=== PATIENT | female | born 1950 | race Caucasian/White ===

== ENCOUNTER 2017-06-29 11:50 | Emergency (ER) | payer MEDICARE, OTHER ==
--- NOTE | 2017-06-29 12:06 | EDM.PDOC ---
ED HPI GENERAL MEDICAL PROBLEM - General Stated Complaint: SORE FOOT Time Seen by Provider: 06/29/17 12:00 Source of Information: Reports: Patient History Limitations: Reports: No Limitations - History of Present Illness INITIAL COMMENTS - FREE TEXT/NARRATIVE: According to patient she was doing some yard work last night and felt a pop in her right ankle and was hurting for a while. She was able to walk with a limp. she woke up today and the pain is worse and also noted some swelling over the lateral aspect of the ankle and hence her to have it checked. She is not sure if she twisted her foot. She claims she has arthritis in the same foot and hence concerned. No other complaints. Onset Date: 06/28/17 Location: Reports: Lower Extremity, Right Quality: Reports: Ache Severity: Moderate Improves with: Reports: None Worsens with: Reports: None Associated Symptoms: Denies: Confusion, Chest Pain, Fever/Chills, Headaches, Malaise, Nausea/Vomiting, Rash, Seizure, Shortness of Breath, Syncope, Weakness - Related Data Allergies Allergy/AdvReac Type Severity Reaction Status Date / Time aspirin Allergy Shortness Verified 06/29/17 11:58 of Breath Home Meds: Home Meds Apixaban [Eliquis] 5 mg PO BID 06/29/17 [History] Furosemide [Lasix] 20 mg PO DAILY 06/29/17 [History] Metoprolol Tartrate 50 mg PO BID 06/29/17 [History] Pravastatin Sodium [Pravastatin (Pravachol)] 40 mg PO DAILY 06/29/17 [History] ED ROS GENERAL - Review of Systems Review Of Systems: See Below Constitutional: Denies: Fever, Chills HEENT: Denies: Rhinitis, Sinus Problem, Throat Pain Respiratory: Denies: Cough, Sputum Cardiovascular: Denies: Chest Pain, Lightheadedness GI/Abdominal: Denies: Nausea, Vomiting : Denies: Dysuria, Flank Pain Musculoskeletal: Reports: Joint Pain, Joint Swelling. Denies: Muscle Pain, Muscle Stiffness Skin: Denies: Bruising, Pruritis, Rash, Erythema, Wound Neurological: Denies: Dizziness, Headache, Numbness, Syncope, Tingling, Weakness ED EXAM, GENERAL - Physical Exam Exam: See Below Exam Limited By: No Limitations General Appearance: Alert, WD/WN, Mild Distress Eye Exam: Bilateral Eye: EOMI, PERRL Ears: Normal External Exam, Normal Canal, Hearing Grossly Normal, Normal TMs Ear Exam: Bilateral Ear: Auricle Normal, Canal Normal, TM normal Nose: Normal Inspection, Normal Mucosa, No Blood Throat/Mouth: Normal Inspection, Normal Lips, Normal Teeth, Normal Gums, Normal Oropharynx, Normal Voice, No Airway Compromise Head: Atraumatic, Normocephalic Neck: Normal Inspection, Supple, Non-Tender, Full Range of Motion Respiratory/Chest: No Respiratory Distress, Lungs Clear, Normal Breath Sounds, No Accessory Muscle Use, Chest Non-Tender Cardiovascular: Normal Peripheral Pulses, Regular Rate, Rhythm, No Edema, No Gallop, No JVD, No Murmur, No Rub Extremities: Normal Inspection, Normal Range of Motion, No Pedal Edema, Normal Capillary Refill, Other (Right foot and ankle: there is very minimal swelling over the lateral aspect of the ankle. She does have good Rom motion , mild pain with inversion of fore foot. On palpation tender just distal to the lateral malleolus. Able to weight bear and walk.). No: Pedal Edema Course - Vital Signs Text/Narrative:: X-ray right ankle appears normal. No obvious dislocation or fracture seen. Pt reassured that she has sprained her ankle. Giuliano wrap applied around the ankle. Okay to weight bear, Avoid twisting or turning motions around the ankle. Tylenol 650mg 3 times daily. Warm compresses 3-4 times daily for 10-15 minutes at a time. Pain should gradually improve. Last Recorded V/S: Last Vital Signs Temp 97.7 F 06/29/17 12:07 Pulse 40 L 06/29/17 12:07 Resp 16 06/29/17 12:07 BP 131/83 06/29/17 12:07 Pulse Ox 100 06/29/17 12:07 - Orders/Labs/Meds Orders: Active Orders 24 hr Category Date Time Status Ankle Min 3V Rt [CR] Stat Exams 06/29/17 11:59 Ordered Departure - Departure Time of Disposition: 12:25 Disposition: Home, Self-Care 01 Condition: Good Clinical Impression: Right ankle sprain - Discharge Information Additional Instructions: X-ray right ankle appears normal. No obvious dislocation or fracture seen. Pt reassured that she has sprained her ankle. Giuliano wrap applied around the ankle. Okay to weight bear, Avoid twisting or turning motions around the ankle. Tylenol 650mg 3 times daily. Warm compresses 3-4 times daily for 10-15 minutes at a time. Pain should gradually improve. - Problem List & Annotations (1) Right ankle sprain SNOMED Code(s): 91913846 Code(s): S93.401A - SPRAIN OF UNSPECIFIED LIGAMENT OF RIGHT ANKLE, INIT ENCNTR Status: Acute - Problem List Review Problem List Initiated/Reviewed/Updated: Yes - My Orders Last 24 Hours: My Active Orders 06/29/17 11:59 Ankle Min 3V Rt [CR] Stat - Assessment/Plan Last 24 Hours: My Active Orders 06/29/17 11:59 Ankle Min 3V Rt [CR] Stat Assessment:: Right ankle sprain Plan: X-ray right ankle appears normal. No obvious dislocation or fracture seen. Pt reassured that she has sprained her ankle. Giuliano wrap applied around the ankle. Okay to weight bear, Avoid twisting or turning motions around the ankle. Tylenol 650mg 3 times daily. Warm compresses 3-4 times daily for 10-15 minutes at a time. Pain should gradually improve.
--- NOTE | 2017-06-30 22:56 | CR ---
DATE OF SERVICE: 06/29/2017 CLINICAL DATA: Right ankle pain. RIGHT ANKLE: There are osteoarthritic changes involving multiple joints. There is a plantar calcaneal spur. No acute fracture or dislocation. No lytic or blastic bone lesions. There are soft tissue calcifications in the lower leg most likely related to venous stasis. [id number] [facility]
== END 2017-06-29 12:30 | disposition home or self-care (01) ==
LOC: LB.ED 11:50
DX: S93.401A Sprain of unspecified ligament of right ankle, initial encounter (principal); Z88.6 Allergy status to analgesic agent; Z79.899 Other long term (current) drug therapy; X50.9XXA Other and unspecified overexertion or strenuous movements or postures, initial encounter
CPT/HCPCS: 73610-RT; 99283